=== PATIENT | male | born 1995 | race Caucasian/White ===

== ENCOUNTER 2017-04-23 02:18 | Emergency (ER) | payer BC ==
[~2017-04-23] VITALS: Ht 182.9 cm; Wt 127.3 kg
[2017-04-23 02:24] VITALS: BP 139/74; TEMP 98.8
[2017-04-23] MEDS ORDERED: MOTRIN 800800 MG/TAB PO (03:11)
[2017-04-23 05:53] VITALS: PULSE 92
== END 2017-04-23 05:55 | disposition home or self-care (01) ==
LOC: COL.ER 02:18
DX: S63.631A Sprain of interphalangeal joint of left index finger, initial encounter (principal); X50.1XXA Overexertion from prolonged static or awkward postures, initial encounter

== ENCOUNTER 2017-06-13 01:33 | Emergency (ER) | payer BC ==
[~2017-06-13] VITALS: Ht 185.4 cm; Wt 127.3 kg
[~2017-06-13 01:33] MED LIST: MOTRIN 800800 MG/TAB PO
[2017-06-13 01:36] VITALS: BP 135/73; TEMP 97.5
[2017-06-13 02:35] LABS: BASO # 0.1 (0.0-0.2); BASO % 0.9 % (0.0-2.0); EOS # 0.2 (0.0-0.7); EOS % 1.7 % (0-4.0); GRAN # 6.1 (1.4-6.5); GRAN % 49.7 % (42.2-75.2); HEMOGLOBIN 15.3 g/dl (13.5-18.0); LYMPH # 4.3 (1.2-3.4); MEAN CELL VOLUME 83 fl (80.0-100.0); MEAN CORPUSCULAR HEMOGLOBIN 29 pg (27.0-31.0); MEAN CORPUSCULAR HGB CONC 35 g/dl (33.0-37.0); MEAN PLATELET VOLUME 9.2 fl (7.4-10.4); MONO # 1.4 (0.1-0.6); MONO % 11.5 % (1.7-9.3); PLATELET COUNT 409 K/mm3 (130-400); RED BLOOD COUNT 5.32 M/mm3 (4.20-5.60); REDCELL DISTRIBUTION WIDTH-CV 12.6 % (11.5-14.5)
[2017-06-13 02:42] LABS: ALBUMIN 4.6 gm/dL (3.5-5.0); BILIRUBIN,TOTAL 0.4 mg/dL (0.0-1.0); CALCIUM 9.4 mg/dL (8.4-10.2); CREATININE, serum 0.62 mg/dL (0.66-1.25); POTASSIUM 3.8 mmol/L (3.4-5.0); TOTAL PROTEIN 8.3 gm/dL (6.4-8.2)
[2017-06-13 03:55] LABS: COLLECTION METHOD CLEAN CATCH
[2017-06-13 04:01] LABS: MUCOUS Present /lpf; PH 5 (5-8); SQUAMOUS EPITHELIAL None Seen /hpf; URINE APPEARANCE Clear; URINE BACTERIA None Seen /hpf; URINE BILIRUBIN Negative (NEGATIVE); URINE BLOOD Negative (NEGATIVE); URINE COLOR Straw; URINE GLUCOSE Negative (NEGATIVE); URINE KETONE Negative (NEGATIVE); URINE LEUKOCYTE ESTERASE Negative (NEGATIVE); URINE NITRATE Negative (NEGATIVE); URINE PROTEIN(semi-quant) Negative (NEGATIVE); URINE RBC 0-2 /hpf; URINE UROBILINOGEN Negative (NEGATIVE)
[2017-06-13] MEDS ORDERED: ZOFRAN 4MG T4 MG/TAB PO (04:45)
[2017-06-13] MEDS ORDERED: NORCO 325 MG-51 TAB PO (04:45)
[2017-06-13 04:57] VITALS: PULSE 96
== END 2017-06-13 04:59 | disposition home or self-care (01) ==
LOC: COL.ER 01:33
PROVIDERS: Emergency Medicine
DX: N50.812 Left testicular pain (principal); F17.220 Nicotine dependence, chewing tobacco, uncomplicated
CPT/HCPCS: J2270; J2405